=== PATIENT | female | born 1950 | race Caucasian/White ===

== ENCOUNTER → 2017-08-11 | Outpatient (CLI) | payer OTHER ==
[~2017-08-11] MED LIST: ALL DAY ALLERGY10 M2 PO; BIOTIN; BUSPAR15 MG PO; BUSPIRONE HCL15 MG PO; CARAFATE1 GM PO; CIPRO500 MG PO; DAILY VITE1 EAC1 PO; DEPAKOTE500 MG PO; FLONASE16 G1 BOTH NARES; HYDROCODON-ACE1 EAC7 PO; IMITREX20 MG; IMITREX25 MG PO; KEFLEX500 MG PO; LEVOTHROID50 MCG PO; LEXAPRO10 MG PO; LOPID600 M1 PO; LOPID600 MG PO; LORTAB 5-325 M1 EACH PO; MIRTAZAPINE30 MG PO; MOTRIN600 MG PO; PHENERGAN25 MG; PROTONIX40 MG PO; RANITIDINE HCL300 MG PO; REMERON30 M2 PO; TIROSINT50 MCG PO; TRAZODONE HCL100 MG PO; VICODIN 5-3001 EACH PO; ZOFRAN8 MG PO
== END | disposition home or self-care (01) ==
LOC: CDC 10:41
DX: Z01.810 Encounter for preprocedural cardiovascular examination (principal); S83.232A Complex tear of medial meniscus, current injury, left knee, initial encounter; M25.562 Pain in left knee; M17.12 Unilateral primary osteoarthritis, left knee; I10 Essential (primary) hypertension; R94.31 Abnormal electrocardiogram [ECG] [EKG]
CPT/HCPCS: 93000

== ENCOUNTER 2017-09-15 19:22 | Emergency (ER) | payer OTHER ==
[~2017-09-15] VITALS: Ht 167.6 cm; Wt 84.1 kg
[2017-09-15] MEDS ORDERED: ULTRAM50 MG PO (22:35)
[2017-09-15 23:00] VITALS: BP 116/80
== END 2017-09-15 23:08 | disposition home or self-care (01) ==
LOC: EME → EDBD 19:22 → EME 23:08
DX: S40.911A Unspecified superficial injury of right shoulder, initial encounter (principal); S80.01XA Contusion of right knee, initial encounter; W01.0XXA Fall on same level from slipping, tripping and stumbling without subsequent striking against object, initial encounter; I10 Essential (primary) hypertension; E78.5 Hyperlipidemia, unspecified; Z86.718 Personal history of other venous thrombosis and embolism; Z96.651 Presence of right artificial knee joint; Z87.891 Personal history of nicotine dependence
CPT/HCPCS: 73030; 73060; 73080; 73564; 99281; 99285; J3030